=== PATIENT | male | born 1985 | race Caucasian/White ===

== ENCOUNTER 2020-09-13 17:03 | Emergency (ER) | payer OTHER, SELFPAY ==
--- NOTE | ~2020-09-13 | CT_ITS ---
EXAMINATION: CT ABDOMEN AND PELVIS WITHOUT CONTRAST CLINICAL INFORMATION: Flank pain with history of kidney stones COMPARISON: None TECHNIQUE: Multidetector volumetric imaging was performed from the superior aspect of the liver through the pubic symphysis. Sagittal and coronal reformatted images were obtained on the technologist's workstation. This CT examination was performed using dose optimization techniques as appropriate, variously including the following: *Automated exposure control *Adjustment of mA and/or kV according to patient size (this includes techniques or standardized protocols for targeted exams where dose is matched to indication/reason for exam; i.e. extremities or head) *Use of iterative reconstruction technique DLP: 371 mGy-cm FINDINGS: LUNG BASES: The visualized lung bases are unremarkable. LIVER, GALLBLADDER, AND BILIARY TREE: The liver is normal in size, shape, and attenuation. No focal hepatic lesion or biliary ductal dilatation is present. The gallbladder is unremarkable with no evidence of radiopaque gallstones, gallbladder wall thickening, or obvious pericholecystic inflammatory changes. PANCREAS: Unremarkable. SPLEEN: Unremarkable. ADRENAL GLANDS: Unremarkable. KIDNEYS AND URETERS: The kidneys are normal in size, shape, and attenuation. No hydronephrosis, hydroureter, or convincing calculi seen. No perinephric stranding. BLADDER: Unremarkable. GASTROINTESTINAL TRACT: The small and large bowel are unremarkable. The appendix is unremarkable aside from containing some high density material which could be appendicoliths. No periappendiceal inflammatory changes seen.. ABDOMINAL WALL: No significant hernia is appreciated. LYMPH NODES: Normal. VASCULAR: Unremarkable. PELVIC VISCERA: Small amount of free fluid is present in the right pelvis. A phlebolith is present in the right pelvis. Seminal vesicles and prostate appear unremarkable. OSSEOUS STRUCTURES: Mild scoliosis convex to right. CT/CT abdomen pelvis wo con IMPRESSION: 1. A cause for the patient's flank pain has not been found. 2. Renal calculi are not present. 3. An appendicolith is present in the appendix.
[2020-09-13 17:46] VITALS: BP 131/80; PULSE 84; RESP 16; TEMP 37.6; O2SAT 94; BMI 23.1
[2020-09-13 18:35] LABS: Glucose Urine UA NEG (NEG); Leukocyte Esterase Urine NEG (NEG); Nitrite Urine NEG (NEG); Specific Gravity - Urine 1.015 (1.005-1.025); Urine Blood TRACE (NEG); Urine Ketones NEG (NEG); Urine Protein NEG (NEG-TRACE)
[2020-09-13 18:43] LABS: Appearance Urine CLEAR; Color Urine YELLOW
[2020-09-13 19:14] LABS: Bacteria Urine TRACE /LPF; Mucus Urine TRACE /LPF; Squamous Epithelial Cell Urine TRACE /LPF; WBC Urine 0 /HPF (0-4)
[2020-09-13 19:54] VITALS: BP 127/85; PULSE 84; RESP 17; TEMP 37.6; O2SAT 100
[2020-09-13] MEDS: 0.9 % Sodium Chloride 1,000 ML 999 ML IVCONT (20:12)
--- NOTE | 2020-09-13 20:12 | ED.ABDPAIN ---
HPI - Abdominal Pain General Chief Complaint: Abdominal Pain Stated Complaint: kidney stones? Time Seen by Provider: 09/13/20 23:08 Source: patient Mode of arrival: ambulatory Limitations: no limitations History of Present Illness HPI narrative: 34-year-old male presents with right flank pain and urinary symptoms. States that he was diagnosed with a kidney stone the beginning of August, feels that he may have passed his kidney stone and reports that he felt a sharp scratching pain inside his urethra and then noted blood in his urine shortly after. He was referred to [facility]rology group, however he did miss his appointment. Does not report any fevers, chills, chest pain or pressure, palpitations, shortness of breath, abdominal distention, nausea, vomiting, diarrhea, constipation, or any other concerning symptoms. MD elicited complaint: abdominal pain and flank pain Pertinent past history: kidney stones Onset (ago): day(s) Pain Consistency: intermittent Location: RLQ and R flank Severity: severe Pain scale (0-10): 10 Quality: aching Radiation: none Migration to: no migration Exacerbating factors: other (Urination) Relieving factors: rest Associated symptoms: dysuria and hematuria Treatments prior to arrival: NSAIDs Related Data Allergies Allergy/AdvReac Type Severity Reaction Status Date / Time No Known Allergies Allergy Verified 09/13/20 17:54 [No Known Allergies*] Review of Systems Review of Systems Constitutional: No Fever, No Chills ENT/Mouth: No sore throat Eyes: No Eye Pain, No Swelling, No Redness Cardiovascular: No Chest Pain, No SOB Respiratory: No Cough, No Sputum, No Wheezing Gastrointestinal: No Nausea, no Vomiting, No Diarrhea, positive abdominal pain Genitourinary: positive Dysuria, no urinary frequency, positive Hematuria, positive Flank Pain, positive hesitancy Musculoskeletal: No joint pain, No Myalgias Skin: No Skin Lesions, No rash Neuro: No Weakness, No Numbness, No Headache Psych: No Anxiety/Panic, No Depression Heme/Lymph: No Bruising, No Lymphadenopathy Endocrine: No Polyuria, No Polydipsia Yes all other systems are reviewed and are negative Physical Exam Vital Signs: Vital Signs: Last Vital Signs Temp 98.8 F 09/13/20 22:18 Pulse 75 09/13/20 22:18 Resp 12 09/13/20 22:18 BP 118/72 09/13/20 22:18 Pulse Ox 97 09/13/20 22:18 Body Mass Index 23.1 Appearance: Alert. Oriented X3. No acute distress. Eyes: Pupils equal, round and reactive to light. ENT: Pharynx normal. Neck: Normal inspection. Neck supple. CVS: Normal heart rate and rhythm. Pulses normal. Respiratory: No respiratory distress. Breath sounds normal. Abdomen: Soft and nontender. Skin: Skin warm and dry. Normal skin color. Normal skin turgor. Extremities: No lower extremity edema. Neuro: No motor deficit. No sensory deficit. Course Course Course Narrative: 34-year-old male presents with symptoms consistent with kidney stone, has been diagnosed with kidney stone. Will treat for pain, give a L of fluid, and CT scan to rule out pyelo, hydro, obstruction, acute abdomen. Patient is stating his dissatisfaction with care regarding long wait time. Emotional support provided. CT scan negative for acute findings requiring emergent intervention. Does show incidental finding of appendicoliths without appendicitis or adjacent visceral stranding. Plan of care is to discharge home. MDM - Abdominal Pain Lab Data Result diagrams: 09/13/20 20:08 09/13/20 20:08 Labs: Lab Results 09/13/20 09/13/20 09/13/20 Range/Units 18:00 20:08 20:08 WBC 4.1 L (4.8-10.8) X10*3/uL RBC 4.22 L (4.60-5.80) X10*6/uL Hgb 12.8 L (14.0-18.0) g/dl Hct 37.3 L (42-52) % MCV 88.4 (80-98) fL MCH 30.3 (27.0-33.0) pg MCHC 34.3 (31.0-36.0) g/dl RDW 12.7 (11.0-16.0) % Plt Count 192 (160-400) X10*3/uL MPV 12.5 H (9.4-12.4) fL Immature Gran % (Auto) 0.2 (0.0-0.4) % Neut % (Auto) 63.8 (45-73) % Lymph % (Auto) 22.0 (20-40) % [place] % (Auto) 13.6 H (2-11) % Eos % (Auto) 0.2 (0-4) % Baso % (Auto) 0.2 (0-2) % Lymph # (Auto) 0.9 L (1.2-4.9) X10*3/uL [place] # (Auto) 0.6 (0.1-1.2) X10*3/uL Eos # (Auto) 0.0 (0.0-0.4) X10*3/uL Baso # (Auto) 0.0 (0.0-0.2) X10*3/uL Abs Immat Gran (auto) 0.01 (0.00-0.03) X10*3/uL Absolute Neuts (auto) 2.6 (2.0-8.3) X10*3/uL Absolute Nucleated RBC 0.000 (0.0-0.012) X10*3/uL Nucleated RBC % (auto) 0.0 (0.0-0.2) /100WBC Sodium 141 (135-145) mmol/L Potassium 3.6 (3.3-5.1) mmol/L Chloride 103 (96-108) mmol/L Carbon Dioxide 28 (22-29) mmol/L Anion Gap 14 (12-20) BUN 10 (9-16) mg/dL Creatinine 1.19 (0.5-1.4) mg/dL Estim Creat Clear Calc 85.4 Estimated GFR > 60 Random Glucose 81 (60-115) mg/dL Calcium 9.2 (8.4-10.2) mg/dL Urine Color YELLOW Urine Appearance CLEAR Urine pH 6.0 (5.0-8.0) Ur Specific [place] 1.015 (1.005-1.025) Urine Protein NEG (NEG-TRACE) MG/DL Urine Glucose (UA) NEG (NEG) MG/DL Urine Ketones NEG (NEG) MG/DL Urine Blood TRACE (NEG) Urine Nitrite NEG (NEG) Ur Leukocyte Esterase NEG (NEG) Urine RBC 5-9 H (0) /HPF Urine WBC 0 (0-4) /HPF Ur Squamous Epith Cells TRACE /LPF Urine Bacteria TRACE /LPF Urine Mucus TRACE /LPF Imaging Data CT scan - abdomen: Attestation: I personally reviewed and interpreted this imaging study as follows: Radiologist's impression: EXAMINATION: CT ABDOMEN AND PELVIS WITHOUT CONTRAST CLINICAL INFORMATION: Flank pain with history of kidney stones COMPARISON: None TECHNIQUE: Multidetector volumetric imaging was performed from the superior aspect of the liver through the pubic symphysis. Sagittal and coronal reformatted images were obtained on the technologist's workstation. This CT examination was performed using dose optimization techniques as appropriate, variously including the following: *Automated exposure control *Adjustment of mA and/or kV according to patient size (this includes techniques or standardized protocols for targeted exams where dose is matched to indication/reason for exam; i.e. extremities or head) *Use of iterative reconstruction technique DLP: 371 mGy-cm FINDINGS: LUNG BASES: The visualized lung bases are unremarkable. LIVER, GALLBLADDER, AND BILIARY TREE: The liver is normal in size, shape, and attenuation. No focal hepatic lesion or biliary ductal dilatation is present. The gallbladder is unremarkable with no evidence of radiopaque gallstones, gallbladder wall thickening, or obvious pericholecystic inflammatory changes. PANCREAS: Unremarkable. SPLEEN: Unremarkable. ADRENAL GLANDS: Unremarkable. KIDNEYS AND URETERS: The kidneys are normal in size, shape, and attenuation. No hydronephrosis, hydroureter, or convincing calculi seen. No perinephric stranding. BLADDER: Unremarkable. GASTROINTESTINAL TRACT: The small and large bowel are unremarkable. The appendix is unremarkable aside from containing some high density material which could be appendicoliths. No periappendiceal inflammatory changes seen.. ABDOMINAL WALL: No significant hernia is appreciated. LYMPH NODES: Normal. VASCULAR: Unremarkable. PELVIC VISCERA: Small amount of free fluid is present in the right pelvis. A phlebolith is present in the right pelvis. Seminal vesicles and prostate appear unremarkable. OSSEOUS STRUCTURES: Mild scoliosis convex to right. CT/CT abdomen pelvis wo con IMPRESSION: 1. A cause for the patient's flank pain has not been found. 2. Renal calculi are not present. 3. An appendicolith is present in the appendix. Discharge Plan Discharge Clinical Impression: Kidney stone, Appendicolith Patient Disposition: Home, Self-Care Instructions: Renal Colic (ED), Abdominal Pain (ED) Additional Instructions: You were evaluated for abdominal pain and hematuria, blood in your urine. You do have known kidney stones, however the CT scan did not show a stone inside the kidney or ureters. It could be possible that you passed a kidney stone prior to arrival. Please follow-up with Urology if hematuria symptoms persist. Incidental finding, you have an appendicoliths, a small stool ball stuck inside the appendix. This is not a surgical emergency at this time, however it gives you a greater risk for appendicitis. Please use caution, if you develop a fever or chills with abdominal pain please return to the emergency department for evaluation. Thank you for choosing this emergency department for evaluation. Please follow-up with primary care physician as needed. Return to the emergency department for any new, concerning, or worsening symptoms. Interventions: ED Discharge Assessment Last Done: 09/13/20 23:26 Discharge Date/Time: 09/13/20 23:27 [facility] Past Medical History Attestation statement: The following information was validated with the patient. Source: old records reviewed Medical History No known health problems Social History Social History Advance Directives: No Advance Directives Information Provided: Yes
[2020-09-13 20:16] LABS: MANUAL DIFF FLAG NO
[2020-09-13 20:21] LABS: Basophils Percent Auto 0.2 % (0-2); Eosinophils Percent Auto 0.2 % (0-4); Hematocrit 37.3 % (42-52); Hemoglobin 12.8 g/dl (14.0-18.0); Imm Gran Abs Auto 0.01 X10*3/uL (0.00-0.03); Imm Gran Pct Auto 0.2 % (0.0-0.4); Lymphocytes Absolute Auto 0.9 X10*3/uL (1.2-4.9); Mean Corpuscular HGB Conc 34.3 g/dl (31.0-36.0); Mean Corpuscular Hemoglobin 30.3 pg (27.0-33.0); Mean Corpuscular Volume 88.4 fL (80-98); Mean Platelet Volume 12.5 fL (9.4-12.4); Monocytes Absolute Auto 0.6 X10*3/uL (0.1-1.2); Monocytes Percent Auto 13.6 % (2-11); Neutrophils Absolute Auto 2.6 X10*3/uL (2.0-8.3); Neutrophils Percent Auto 63.8 % (45-73); Platelet Count 192 X10*3/uL (160-400); Red Blood Count 4.22 X10*6/uL (4.60-5.80); Red Cell Distribution Width 12.7 % (11.0-16.0); White Blood Count 4.1 X10*3/uL (4.8-10.8)
[2020-09-13] MEDS: Ketorolac Tromethamine 30 MG/ML VIAL IVPUSH (20:28)
[2020-09-13] MEDS: predniSONE 20 MG TABLET PO (20:29)
[2020-09-13] MEDS: ondansetron HCL 4 MG/2 ML VIAL IVPUSH (20:29)
[2020-09-13] MEDS: Tamsulosin HCL 0.4 MG CAPSULE PO (20:29)
[2020-09-13] MEDS: Morphine Sulfate 4 MG/ML CARTRIDGE IVPUSH (20:29)
[2020-09-13 20:48] LABS: Anion Gap 14 (12-20); Blood Urea Nitrogen 10 mg/dL (9-16); Calcium 9.2 mg/dL (8.4-10.2); Carbon Dioxide 28 mmol/L (22-29); Chloride 103 mmol/L (96-108); Creatinine Clr Calc Pharmacy 85.4; Estimated Glomerular Filt Rate > 60; Glucose Random 81 mg/dL (60-115); Potassium 3.6 mmol/L (3.3-5.1); Sodium 141 mmol/L (135-145)
--- NOTE | 2020-09-13 21:37 | PC.NURSE ---
PT RESTING IN BED, TALKING ON PHONE IN FULL SENTENCES. NO SOB NOTED.
[2020-09-13 22:18] VITALS: BP 118/72; PULSE 75; RESP 12; TEMP 37.1; O2SAT 97
--- NOTE | 2020-09-13 22:32 | PC.NURSE ---
PT C/O PAIN. MD AWARE. NO NEW ORDERS AT THIS TIME.
== END 2020-09-13 23:27 | disposition home or self-care (01) ==
PROVIDERS: Nurse Practitioner Family; Emergency Provider Emergency Medicine
DX: N23 Unspecified renal colic (principal); R31.9 Hematuria, unspecified; K38.1 Appendicular concretions; Z87.442 Personal history of urinary calculi
CPT/HCPCS: 36415; 74176; 80048; 81001; 85025; 96361; 96374; 96375; 99284; 99285; J1885; J2270; J2405

== ENCOUNTER 2021-02-24 21:38 | Inpatient (IN) | payer OTHER, SELFPAY ==
[2021-02-25 00:07] VITALS: BMI 22.0
[2021-02-25 01:03] VITALS: BP 139/75; PULSE 66; RESP 16; TEMP 36; O2SAT 99
--- NOTE | 2021-02-25 01:32 | PC.ADMIT ---
Pt is a 35 year old male admitted for Anxiety and depression with suicidal ideation. Diagnosis: Anxiety and depression. Tox: Benzo/Buprenophine. Covid: negative. VSS. Pt denies SI/HI. Pt calm and cooperative, speech is regular with normal tone, rhythm and unruly. Denies auditory and visual hallucinations. Pt reports having depression and suicidal thoughts because of him going through separation with his . Pt states he is looking to establish care with psychiatrist and psychotherapist. Pt is hoping to get better and integrate in to the society.
[2021-02-25 06:00] VITALS: BP 114/68; PULSE 61; RESP 16; TEMP 36.4; O2SAT 97
[2021-02-25] MEDS: Buprenorphine/Naloxone 4/1 mg FILM 1 FILM SUBLINGUAL ×2 (11:45→13:09)
[2021-02-25 11:46] VITALS: PULSE 63
[2021-02-25 12:00] VITALS: BP 122/63; PULSE 63
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
[2021-02-25] MEDS: Buprenorphine/Naloxone 8/2 mg FILM 1 FILM SUBLINGUAL (18:14)
[2021-02-25 19:52] VITALS: BP 119/72; PULSE 89; TEMP 37
[2021-02-26] MEDS: Buprenorphine/Naloxone 8/2 mg FILM 1 FILM SUBLINGUAL ×2 (08:14→18:56)
[2021-02-26 08:34] VITALS: BP 109/62; PULSE 63; RESP 18; TEMP 36.2; O2SAT 100
--- NOTE | 2021-02-26 11:46 | HO.PSYCHPN ---
Subjective Subjective Date of Service: 02/26/21 Reason For Visit: Mixed features Subjective Notes: Conditional Voluntary Medical Problems Affecting Mental Status: No Interim History: Pt reports doing ok - didn't sleep well , but didn't want to take trazodone only takes at detox and it makes him groggy in am, reviewed inital eval - which recommended trial of abilify which I will start tonight. for him Medication Compliance: Yes Side effects from medications: No Attending Groups: Intermittent Review of Systems Acute medical concerns: No Review of Systems Review of Systems Yes all other systems are reviewed and are negative Constitutional: Reports no additional constitutional complaints Mental Status Exam Mental Status Exam Narrative: fairly kempt , seems annoyed - Patient Appearance: Appropriate Patient Orientation: Person, Place, Time and Situation Level of Consciousness: Awake and Appropriate Patient Behavior: Appropriate Mood Description: Apathetic and Angry Affect Description: Calm Patient Cognition Impaired: No Ability to Follow Directions: Fair Speech Pattern: Appropriate Memory Description: Intact Hallucinations: None Delusions: Not Present Thought Process: Intact Thought Content: positive for Intact Depressive Symptoms: Difficulty Sleeping Judgement: Fair Judgement and Insight: knows his marriage is at risk and needs to address substance abuse, Diagnostics Vital Signs (24Hr): Vital Signs - 24 hr 02/25/21 12:00 02/25/21 19:52 02/26/21 08:34 Temperature 98.6 F 97.2 F Pulse Rate 63 89 63 Respiratory Rate 18 Blood Pressure 122/63 119/72 109/62 Pulse Oximetry 100 Body Mass Index 22.0 Medications Medications Current Medications Acetaminophen (Acetaminophen 325 Mg Tablet) 650 mg PO Q6H PRN PRN Reason: Headache/Pain Mild Scale (1-3) Al Hydroxide/Mg Hydroxide (Magnesium Hydrox/Alum Hydrox 30 Ml Oral.Susp) 30 ml PO Q6H PRN PRN Reason: Heartburn/Nausea Aripiprazole (Aripiprazole 5 Mg Tablet) 5 mg PO DAILY [facility] Buprenorphine/Naloxone (Buprenorphine/Naloxone 8/2 Mg Film) 1 film SUBLINGUAL BID@0800,1800 [facility] Last Admin: 02/26/21 08:14 Dose: 1 film Documented by: Hydroxyzine HCl (Hydroxyzine Hcl 25 Mg Tablet) 25 mg PO BEDTIME PRN PRN Reason: Anxiety Magnesium Hydroxide (Milk Of Magnesia 30 Ml Oral.Susp) 30 ml PO DAILY PRN PRN Reason: Constipation Nicotine Polacrilex (Nicotine Polacrilex 2 Mg Gum) 4 mg BUCCAL Q2H PRN PRN Reason: Nicotine Cravings Trazodone HCl (Trazodone Hcl 50 Mg Tablet) 50 mg PO BEDTIME PRN PRN Reason: Insomnia Allergies Allergies Allergy/AdvReac Type Severity Reaction Status Date / Time No Known Allergies Allergy Verified 09/13/20 17:54 [No Known Allergies*] Assessment & Plan Assessment & Plan (1) Bipolar II disorder: Status: Acute Code(s): F31.81 - Bipolar II disorder (2) Opioid use disorder, mild, on maintenance therapy: Status: Acute Code(s): F11.10 - Opioid abuse, uncomplicated (3) Alcohol abuse: Status: Acute Code(s): F10.10 - Alcohol abuse, uncomplicated (4) Cocaine use disorder: Status: Acute Code(s): F14.10 - Cocaine abuse, uncomplicated Assessment and Plan: 35 yo with no sys of withdrawl denies cravings, ongoing feeling down/irritable and trouble sleeping Plan: Start abilify 5 mg QAM for sx of depression, impulsivity, mood congruent paranoia, agitation, and to help with mood instability. Continue suboxone at one 8/2 mg film BID (reportedly using 2-3 of these in the community, can obtain level and monitor for withdrawal sx) Monitor response to medications. Monitor for safety in the milieu. Discharge on stabilization. Patient seen. Chart reviewed. Discussed with team. Greater than 50% of the session was spent on counseling and/or coordination of care Patient educated on: substance abuse Guardian/Caregiver educated on: medication risk/benefits Informed Consent: understands Reason for contiued inpatient stay Substantial Risk for: rapid decompensation
[2021-02-26 18:00] VITALS: BP 122/68; PULSE 66; RESP 16; TEMP 36.9; O2SAT 99
[2021-02-26] MEDS: ARIPiprazole 5 MG TABLET PO (20:50)
[2021-02-27] MEDS: Buprenorphine/Naloxone 8/2 mg FILM 1 FILM SUBLINGUAL ×2 (08:30→17:45)
[2021-02-27 08:41] VITALS: BP 113/76; PULSE 70; RESP 18; TEMP 36.6; O2SAT 98
--- NOTE | 2021-02-27 09:59 | P.PNPSI_ITS ---
Subjective Subjective Date of Service: 02/27/21 Reason For Visit: Mixed features Subjective Notes: Conditional Voluntary Medical Problems Affecting Mental Status: No Interim History: Pt initially fell asleep after aripiprazole but then up an hour later and up and odwn all night, did not ask for melatonin and feigned sleep when nurse came on checks.... creeped him out Medication Compliance: Yes Side effects from medications: No Attending Groups: Intermittent Review of Systems Acute medical concerns: No Medical Review of Systems: unchanged Mental Status Exam Mental Status Exam Narrative: fairly kempt , seems annoyed - Patient Appearance: Appropriate Patient Orientation: Person, Place, Time and Situation Level of Consciousness: Awake and Appropriate Patient Behavior: Appropriate Mood Description: Apathetic Affect Description: Calm Patient Cognition Impaired: No Ability to Follow Directions: Fair Speech Pattern: Appropriate Memory Description: Intact Hallucinations: None Delusions: Not Present Thought Process: Intact Thought Content: positive for Intact Depressive Symptoms: Difficulty Sleeping Judgement: Fair Judgement and Insight: knows his marriage is at risk and needs to address substance abuse, Diagnostics Vital Signs (24Hr): Vital Signs - 24 hr 02/26/21 18:00 02/27/21 08:41 Temperature 98.4 F 97.9 F Pulse Rate 66 70 Respiratory Rate 16 18 Blood Pressure 122/68 113/76 Pulse Oximetry 99 98 Body Mass Index 22.0 Medications Medications Current Medications Acetaminophen (Acetaminophen 325 Mg Tablet) 650 mg PO Q6H PRN PRN Reason: Headache/Pain Mild Scale (1-3) Al Hydroxide/Mg Hydroxide (Magnesium Hydrox/Alum Hydrox 30 Ml Oral.Susp) 30 ml PO Q6H PRN PRN Reason: Heartburn/Nausea Aripiprazole (Aripiprazole 5 Mg Tablet) 5 mg PO BEDTIME [facility] Last Admin: 02/26/21 20:50 Dose: 5 mg Documented by: Buprenorphine/Naloxone (Buprenorphine/Naloxone 8/2 Mg Film) 1 film SUBLINGUAL BID@0800,1800 [facility] Last Admin: 02/27/21 08:30 Dose: 1 film Documented by: Hydroxyzine HCl (Hydroxyzine Hcl 25 Mg Tablet) 25 mg PO BEDTIME PRN PRN Reason: Anxiety Magnesium Hydroxide (Milk Of Magnesia 30 Ml Oral.Susp) 30 ml PO DAILY PRN PRN Reason: Constipation Melatonin (Melatonin 3 Mg Tablet) 3 mg PO BEDTIME MRX1 PRN PRN Reason: Insomnia Nicotine Polacrilex (Nicotine Polacrilex 2 Mg Gum) 4 mg BUCCAL Q2H PRN PRN Reason: Nicotine Cravings Allergies Allergies Allergy/AdvReac Type Severity Reaction Status Date / Time No Known Allergies Allergy Verified 09/13/20 17:54 [No Known Allergies*] Assessment & Plan Assessment & Plan (1) Bipolar II disorder: Status: Acute Code(s): F31.81 - Bipolar II disorder (2) Opioid use disorder, mild, on maintenance therapy: Status: Acute Code(s): F11.10 - Opioid abuse, uncomplicated (3) Alcohol abuse: Status: Acute Code(s): F10.10 - Alcohol abuse, uncomplicated (4) Cocaine use disorder: Status: Acute Code(s): F14.10 - Cocaine abuse, uncomplicated Assessment and Plan: 35 yo with no sys of withdrawl denies cravings, ongoing feeling down/irritable and trouble sleeping Plan: continue aripiprazole trial pt will take melatonin with it tonight, otherwise may need change to am for me Monitor response to medications. Monitor for safety in the milieu. Discharge on stabilization. Patient seen. Chart reviewed. Discussed with team. Greater than 50% of the session was spent on counseling and/or coordination of care Patient educated on: medication risk/benefits Reason for contiued inpatient stay Substantial Risk for: rapid decompensation
[2021-02-27 17:49] VITALS: BP 123/60; PULSE 80; TEMP 37
[2021-02-27] MEDS: ARIPiprazole 5 MG TABLET PO (22:00)
[2021-02-27] MEDS: Melatonin 3 MG TABLET PO (22:00)
[2021-02-28] MEDS: Buprenorphine/Naloxone 8/2 mg FILM 1 FILM SUBLINGUAL ×2 (08:10→19:01)
[2021-02-28] MEDS: FLUoxetine HCl 10 MG CAPSULE PO (14:00)
[2021-02-28] MEDS: Buprenorphine/Naloxone 4/1 mg FILM 1 FILM SUBLINGUAL (14:00)
[2021-02-28 18:00] VITALS: RESP 18
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
[2021-03-01 06:00] VITALS: BP 118/67; PULSE 77; RESP 18; TEMP 36.7; O2SAT 95
[2021-03-01 08:08] VITALS: BP 132/78; PULSE 86; RESP 16; TEMP 36.6; O2SAT 100
[2021-03-01] MEDS: FLUoxetine HCl 10 MG CAPSULE PO (08:08)
[2021-03-01] MEDS: Buprenorphine/Naloxone 8/2 mg FILM 1 FILM SUBLINGUAL ×2 (08:08→20:12)
[2021-03-01] MEDS: Buprenorphine/Naloxone 4/1 mg FILM 1 FILM SUBLINGUAL (08:08)
--- NOTE | 2021-03-01 10:20 | HO.PSYCHPN ---
Subjective Subjective Date of Service: 03/01/21 Reason For Visit: Mixed features Interim History: pt reports that he slept better last night with Abilfy removed. He denies any side-effects to Prozac and agrees to titrate to 20mg which will do over next day or so. Pt continues to deny si/hi/avh. He talked about his need to attend aftercare for substance abuse and his hope of getting into a program. He also shared that he'd been sober for 4.5 years and only relapses 3 months ago when he and separted. Pt shared how his hx of trauma as a child makes him vulnerable to numerous triggers, the break up of his nuclear family being one. He said he's never talked about his trauma history and has used drug abuse as a way to cope with thoughts. Pt said at this point, he would like to engage in 1:1 therapy to help process this history and decrease it's influence on his adult life. Review of Systems Review of Systems ?Patient Appearance:?Appropriate Patient Orientation:?Person, Place, Time and Situation Level of Consciousness:?Awake and Appropriate Patient Behavior:?Appropriate, calm, cooperative Mood Description:?depressed but improving Affect Description:?pensive Patient Cognition Impaired:?No Ability to Follow Directions:?Fair Speech Pattern:?Appropriate Memory Description:?Intact Hallucinations:?None Delusions:?Not Present Thought Process:?Intact, linear, goal oriented Thought Content:?no SI/HI; on treatment;?life struggles Judgement and Insight:intact Diagnostics Vital Signs (24Hr): Vital Signs - 24 hr 02/28/21 18:00 03/01/21 06:00 03/01/21 08:08 Temperature 98.1 F 98 F Pulse Rate 77 86 Respiratory Rate 18 18 16 Blood Pressure 118/67 132/78 Pulse Oximetry 95 100 Body Mass Index 22.0 Medications Medications Current Medications Acetaminophen (Acetaminophen 325 Mg Tablet) 650 mg PO Q6H PRN PRN Reason: Headache/Pain Mild Scale (1-3) Al Hydroxide/Mg Hydroxide (Magnesium Hydrox/Alum Hydrox 30 Ml Oral.Susp) 30 ml PO Q6H PRN PRN Reason: Heartburn/Nausea Buprenorphine/Naloxone (Buprenorphine/Naloxone 8/2 Mg Film) 1 film SUBLINGUAL BID [facility] Last Admin: 03/01/21 08:08 Dose: 1 film Documented by: Buprenorphine/Naloxone (Buprenorphine/Naloxone 4/1 Mg Film) 1 film SUBLINGUAL DAILY [facility] Last Admin: 03/01/21 08:08 Dose: 1 film Documented by: Fluoxetine HCl (Fluoxetine Hcl 10 Mg Capsule) 10 mg PO DAILY [facility] Last Admin: 03/01/21 08:08 Dose: 10 mg Documented by: Hydroxyzine HCl (Hydroxyzine Hcl 25 Mg Tablet) 25 mg PO BEDTIME PRN PRN Reason: Anxiety Magnesium Hydroxide (Milk Of Magnesia 30 Ml Oral.Susp) 30 ml PO DAILY PRN PRN Reason: Constipation Melatonin (Melatonin 3 Mg Tablet) 3 mg PO BEDTIME MRX1 PRN PRN Reason: Insomnia Last Admin: 02/27/21 22:00 Dose: 3 mg Documented by: Nicotine Polacrilex (Nicotine Polacrilex 2 Mg Gum) 4 mg BUCCAL Q2H PRN PRN Reason: Nicotine Cravings Allergies Allergies Allergy/AdvReac Type Severity Reaction Status Date / Time No Known Allergies Allergy Verified 09/13/20 17:54 [No Known Allergies*] Assessment & Plan Assessment & Plan (1) MDD (major depressive disorder), recurrent episode, severe: Status: Acute Code(s): F33.2 - Major depressive disorder, recurrent severe without psychotic features (2) PTSD (post-traumatic stress disorder): Status: Chronic Code(s): F43.10 - Post-traumatic stress disorder, unspecified (3) Cocaine use disorder: Status: Chronic Code(s): F14.10 - Cocaine abuse, uncomplicated (4) Opioid use disorder, mild, on maintenance therapy: Status: Chronic Code(s): F11.10 - Opioid abuse, uncomplicated (5) Alcohol abuse: Status: Chronic Code(s): F10.10 - Alcohol abuse, uncomplicated (6) Bipolar II disorder: Status: Ruled-out Code(s): F31.81 - Bipolar II disorder Assessment and Plan: pt denies hx periods of manic symptoms and at this point hx of behaviors can be explained by depression, complex PTSD, and chronic substance abuse. Assessment and Plan: 35 yo with no sys of withdrawl denies cravings, ongoing feeling down/irritable and trouble sleeping while pt was dx with bipolar disorder type II, he denies any hx of manic type episodes or behaviors and at this point hx of behaviors can be explained by depression, complex PTSD, and chronic substance abuse. He explained that one time he got paranoid once since he had a lot of renae in the house and lives an unsafe neighborhood and for 2 days was constantly surveying all passerbys, however, this was limited to this situation and he did not have other manic symptoms. Pt reports depression is main focus. Control Director discussed risks of coming off abilify and starting on Prozac including risk of triggering manic episode, but pt agrees to this risk and wants to make this change. Control Director agrees that given his reported hx, he is at low risk for having bipolar. Plan: DC abilify; does not want it; interfering w/ sleep; hx of symptoms more likely due to MDD, ptsd and substance abuse continue prozac 10mg for depression and PTSD; titrate to 20mg decided against Wellbutrin since pt already has an intensity about him; however this is also an option INCREASED suboxone by 4/1mg in afternoon since pt used to by on 8/2mg TID Monitor response to medications. Monitor for safety in the milieu. Discharge on stabilization. Patient seen. Chart reviewed. Discussed with team. Greater than 50% of the session was spent on counseling and/or coordination of care Reason for contiued inpatient stay Substantial Risk for: med/psych decompensation
[2021-03-01 18:00] VITALS: BP 140/80; PULSE 77; TEMP 36.6
[2021-03-01] MEDS: Melatonin 3 MG TABLET PO (23:37)
[2021-03-02] MEDS: Buprenorphine/Naloxone 8/2 mg FILM 1 FILM SUBLINGUAL ×2 (08:18→20:05)
[2021-03-02] MEDS: Buprenorphine/Naloxone 4/1 mg FILM 1 FILM SUBLINGUAL (08:18)
[2021-03-02] MEDS: FLUoxetine HCl 10 MG CAPSULE PO (08:18)
[2021-03-02 08:27] VITALS: BP 115/70; PULSE 84; RESP 16; TEMP 36.5; O2SAT 100
--- NOTE | 2021-03-02 12:49 | HO.PSYCHPN ---
Subjective Subjective Date of Service: 03/02/21 Reason For Visit: Mixed features Interim History: pt reports still has depression and anxiety but feels he's coping with it better has he's getting hopeful about getting into an after care program. Pt reports increasing nightmares however that are disturbing sleep. Discussed medications and pt does not want to start a new med just yet (for sleep/nightmares) but wants to wait and see if it resolves on its' own. He feels that he's adjusting to Prozac. Discussed titrating prozac to 20mg given his long hx of depression and anxiety and the subsequent fall out; pt agrees to increased dose. There is a low chance that patients nightmares are secondary to starting Prozac as they coincide; will thus allow patients body to further adjust to this medication as he is niave to psychotropics, and titrate in another day or so. Mental Status Exam Mental Status Exam Narrative: Patient Appearance:?Appropriate Patient Orientation:?Person, Place, Time and Situation Level of Consciousness:?Awake and Appropriate Patient Behavior:?Appropriate, calm, cooperative Mood Description:?depressed Affect Description: remains?depressed Patient Cognition Impaired:?No Ability to Follow Directions:?Fair Speech Pattern:?Appropriate Memory Description:?Intact Hallucinations:?None Delusions:?Not Present Thought Process:?Intact, linear, goal oriented Thought Content:?no SI/HI; on treatment;?life's struggles, failing marriage Judgment and Insight:?knows his marriage is at risk and needs to address substance abuse,? Diagnostics Vital Signs (24Hr): Vital Signs - 24 hr 03/01/21 18:00 03/02/21 08:27 Temperature 97.9 F 97.7 F Pulse Rate 77 84 Respiratory Rate 16 Blood Pressure 140/80 H 115/70 Pulse Oximetry 100 Body Mass Index 22.0 Medications Medications Current Medications Acetaminophen (Acetaminophen 325 Mg Tablet) 650 mg PO Q6H PRN PRN Reason: Headache/Pain Mild Scale (1-3) Al Hydroxide/Mg Hydroxide (Magnesium Hydrox/Alum Hydrox 30 Ml Oral.Susp) 30 ml PO Q6H PRN PRN Reason: Heartburn/Nausea Buprenorphine/Naloxone (Buprenorphine/Naloxone 8/2 Mg Film) 1 film SUBLINGUAL BID [facility] Last Admin: 03/02/21 08:18 Dose: 1 film Documented by: Buprenorphine/Naloxone (Buprenorphine/Naloxone 4/1 Mg Film) 1 film SUBLINGUAL DAILY [facility] Last Admin: 03/02/21 08:18 Dose: 1 film Documented by: Fluoxetine HCl (Fluoxetine Hcl 10 Mg Capsule) 10 mg PO DAILY [facility] Last Admin: 03/02/21 08:18 Dose: 10 mg Documented by: Hydroxyzine HCl (Hydroxyzine Hcl 25 Mg Tablet) 25 mg PO BEDTIME PRN PRN Reason: Anxiety Magnesium Hydroxide (Milk Of Magnesia 30 Ml Oral.Susp) 30 ml PO DAILY PRN PRN Reason: Constipation Melatonin (Melatonin 3 Mg Tablet) 3 mg PO BEDTIME MRX1 PRN PRN Reason: Insomnia Last Admin: 03/01/21 23:37 Dose: 3 mg Documented by: Nicotine Polacrilex (Nicotine Polacrilex 2 Mg Gum) 4 mg BUCCAL Q2H PRN PRN Reason: Nicotine Cravings Allergies Allergies Allergy/AdvReac Type Severity Reaction Status Date / Time No Known Allergies Allergy Verified 09/13/20 17:54 [No Known Allergies*] Assessment & Plan Assessment & Plan (1) MDD (major depressive disorder), recurrent episode, severe: Status: Chronic Code(s): F33.2 - Major depressive disorder, recurrent severe without psychotic features (2) PTSD (post-traumatic stress disorder): Status: Chronic Code(s): F43.10 - Post-traumatic stress disorder, unspecified (3) Cocaine use disorder: Status: Chronic Code(s): F14.10 - Cocaine abuse, uncomplicated (4) Opioid use disorder, mild, on maintenance therapy: Status: Chronic Code(s): F11.10 - Opioid abuse, uncomplicated (5) Alcohol abuse: Status: Chronic Code(s): F10.10 - Alcohol abuse, uncomplicated (6) Bipolar II disorder: Status: Ruled-out Code(s): F31.81 - Bipolar II disorder Assessment and Plan: pt denies hx periods of manic symptoms and at this point hx of behaviors can be explained by depression, complex PTSD, and chronic substance abuse. Assessment and Plan: 35 yo with no sys of withdrawl denies cravings, ongoing feeling down/irritable and trouble sleeping while pt was dx with bipolar disorder type II, he denies any hx of manic type episodes or behaviors and at this point hx of behaviors can be explained by depression, complex PTSD, and chronic substance abuse. He explained that one time he got paranoid once since he had a lot of renae in the house and lives an unsafe neighborhood and for 2 days was constantly surveying all passerbys, however, this was limited to this situation and he did not have other manic symptoms. Pt reports depression is main focus. Coper Hand discussed risks of coming off abilify and starting on Prozac including risk of triggering manic episode, but pt agrees to this risk and wants to make this change. Coper Hand agrees that given his reported hx, he is at low risk for having bipolar. seems to be tolerating Prozac however nightmares coincided with starting this med Discussed titrating prozac to 20mg given his long hx of depression and anxiety and the subsequent fall out; pt agrees to increased dose. As there is a low chance that patients nightmares are secondary to starting Prozac will thus allow patients body to further adjust to this medication (as he is naive to psychotropics), and titrate in another day or so. Also pt carries cx of bipolar disorder. While financial writer thinks this is dx is unlikely, he is now off a mood stabilizer and on a SSRI which carries risk of triggering manic episode. Pt to remain on unit for safety during titration. Plan: DC abilify; does not want it; interfering w/ sleep; hx of symptoms more likely due to MDD, ptsd and substance abuse continue prozac 10mg for depression and PTSD; will titrate to 20mg on 03/04 and monitor for side-effects decided against Wellbutrin since pt already has an intensity about him; however this is also an option INCREASED suboxone by 4/1mg in afternoon since pt used to by on 8/2mg TID Monitor response to medications. Monitor for safety in the milieu. Discharge on stabilization. Patient seen. Chart reviewed. Discussed with team. Greater than 50% of the session was spent on counseling and/or coordination of care Reason for contiued inpatient stay Substantial Risk for: med/psych decompensation
[2021-03-02 23:05] VITALS: BP 128/71; PULSE 71; TEMP 36.7
[2021-03-03] MEDS: Melatonin 3 MG TABLET PO (03:12)
[2021-03-03 06:00] VITALS: BP 108/57; PULSE 82; RESP 16; TEMP 37; O2SAT 98
[2021-03-03 07:00] VITALS: BMI 24.0
[2021-03-03] MEDS: Buprenorphine/Naloxone 4/1 mg FILM 1 FILM SUBLINGUAL (08:22)
[2021-03-03] MEDS: FLUoxetine HCl 10 MG CAPSULE PO (08:22)
[2021-03-03] MEDS: Buprenorphine/Naloxone 8/2 mg FILM 1 FILM SUBLINGUAL ×2 (08:22→19:37)
--- NOTE | 2021-03-03 10:11 | P.PNPSI_ITS ---
Subjective Subjective Date of Service: 03/03/21 Reason For Visit: Mixed features Interim History: pt seen on 03/03 pt reports mood is better; he continues to have nightmares. Pt reiterates his need for a program post discharge feeling vulnerable to relapse. Renewable Energy Consultant discussed medication and pt agrees to titrate Prozac to 20mg starting sunday. Mental Status Exam Mental Status Exam Narrative: Patient Appearance:?Appropriate Patient Orientation:?Person, Place, Time and Situation Level of Consciousness:?Awake and Appropriate Patient Behavior:?Appropriate, calm, cooperative Mood Description:?depressed but less so Affect Description: calm Patient Cognition Impaired:?No Ability to Follow Directions:?Fair Speech Pattern:?Appropriate Memory Description:?Intact Hallucinations:?None Delusions:?Not Present Thought Process:?Intact, linear, goal oriented Thought Content:?no SI/HI; on treatment;?life's struggles, failing marriage Judgment and Insight:?knows his marriage is at risk and needs to address substance abuse,? Diagnostics Vital Signs (24Hr): Vital Signs - 24 hr 03/02/21 23:05 03/03/21 06:00 Temperature 98.1 F 98.6 F Pulse Rate 71 82 Respiratory Rate 16 Blood Pressure 128/71 108/57 L Pulse Oximetry 98 Body Mass Index 24.0 Medications Medications Current Medications Acetaminophen (Acetaminophen 325 Mg Tablet) 650 mg PO Q6H PRN PRN Reason: Headache/Pain Mild Scale (1-3) Al Hydroxide/Mg Hydroxide (Magnesium Hydrox/Alum Hydrox 30 Ml Oral.Susp) 30 ml PO Q6H PRN PRN Reason: Heartburn/Nausea Buprenorphine/Naloxone (Buprenorphine/Naloxone 8/2 Mg Film) 1 film SUBLINGUAL BID [facility] Last Admin: 03/03/21 08:22 Dose: 1 film Documented by: Buprenorphine/Naloxone (Buprenorphine/Naloxone 4/1 Mg Film) 1 film SUBLINGUAL DAILY [facility] Last Admin: 03/03/21 08:22 Dose: 1 film Documented by: Fluoxetine HCl (Fluoxetine Hcl 10 Mg Capsule) 10 mg PO DAILY [facility] Last Admin: 03/03/21 08:22 Dose: 10 mg Documented by: Hydroxyzine HCl (Hydroxyzine Hcl 25 Mg Tablet) 25 mg PO BEDTIME PRN PRN Reason: Anxiety Magnesium Hydroxide (Milk Of Magnesia 30 Ml Oral.Susp) 30 ml PO DAILY PRN PRN Reason: Constipation Melatonin (Melatonin 3 Mg Tablet) 3 mg PO BEDTIME MRX1 PRN PRN Reason: Insomnia Last Admin: 03/03/21 03:12 Dose: 3 mg Documented by: Nicotine Polacrilex (Nicotine Polacrilex 2 Mg Gum) 4 mg BUCCAL Q2H PRN PRN Reason: Nicotine Cravings Allergies Allergies Allergy/AdvReac Type Severity Reaction Status Date / Time No Known Allergies Allergy Verified 09/13/20 17:54 [No Known Allergies*] Assessment & Plan Assessment & Plan (1) MDD (major depressive disorder), recurrent episode, severe: Status: Chronic Code(s): F33.2 - Major depressive disorder, recurrent severe without psychotic features (2) PTSD (post-traumatic stress disorder): Status: Chronic Code(s): F43.10 - Post-traumatic stress disorder, unspecified (3) Cocaine use disorder: Status: Chronic Code(s): F14.10 - Cocaine abuse, uncomplicated (4) Opioid use disorder, mild, on maintenance therapy: Status: Chronic Code(s): F11.10 - Opioid abuse, uncomplicated (5) Alcohol abuse: Status: Chronic Code(s): F10.10 - Alcohol abuse, uncomplicated (6) Bipolar II disorder: Status: Ruled-out Code(s): F31.81 - Bipolar II disorder Assessment and Plan: pt denies hx periods of manic symptoms and at this point hx of behaviors can be explained by depression, complex PTSD, and chronic substance abuse. Assessment and Plan: 35 yo with no sys of withdrawl denies cravings, ongoing feeling down/irritable and trouble sleeping while pt was dx with bipolar disorder type II, he denies any hx of manic type episodes or behaviors and at this point hx of behaviors can be explained by depression, complex PTSD, and chronic substance abuse. He explained that one time he got paranoid once since he had a lot of renae in the house and lives an unsafe neighborhood and for 2 days was constantly surveying all passerbys, however, this was limited to this situation and he did not have other manic symptoms. Pt reports depression is main focus. Renewable Energy Consultant discussed risks of coming off abilify and starting on Prozac including risk of triggering manic episode, but pt agrees to this risk and wants to make this change. Renewable Energy Consultant agrees that given his reported hx, he is at low risk for having bipolar. seems to be tolerating Prozac however nightmares coincided with starting this med Discussed titrating prozac to 20mg given his long hx of depression and anxiety and the subsequent fall out; pt agrees to increased dose. As there is a low chance that patients nightmares are secondary to starting Prozac will thus allow patients body to further adjust to this medication (as he is naive to psychotropics), and titrate in another day or so. Also pt carries cx of bipolar disorder. While publications writer thinks this is dx is unlikely, he is now off a mood stabilizer and on a SSRI which carries risk of triggering manic episode. Pt to remain on unit for safety during titration and for few days following. Plan: DC abilify; does not want it; interfering w/ sleep; hx of symptoms more likely due to MDD, ptsd and substance abuse continue prozac 10mg for depression and PTSD; will titrate to 20mg on 03/04 and monitor for side-effects decided against Wellbutrin since pt already has an intensity about him; however this is also an option INCREASED suboxone by 4/1mg in afternoon since pt used to by on 8/2mg TID Monitor response to medications. Monitor for safety in the milieu. Discharge on stabilization. Patient seen. Chart reviewed. Discussed with team. Greater than 50% of the session was spent on counseling and/or coordination of care Reason for contiued inpatient stay Substantial Risk for: med/psych decompensation
[2021-03-03 18:00] VITALS: BP 124/70; PULSE 80; TEMP 36.6
[2021-03-04 06:00] VITALS: BP 122/60; PULSE 64; RESP 18; TEMP 36.7; O2SAT 100
[2021-03-04] MEDS: FLUoxetine HCl 20 MG CAPSULE PO (08:14)
[2021-03-04] MEDS: Buprenorphine/Naloxone 8/2 mg FILM 1 FILM SUBLINGUAL ×2 (08:14→19:14)
[2021-03-04] MEDS: Buprenorphine/Naloxone 4/1 mg FILM 1 FILM SUBLINGUAL (08:14)
[2021-03-04] MEDS: Nicotine Polacrilex 2 MG GUM 4 MG BUCCAL (11:29)
--- NOTE | 2021-03-04 18:07 | HO.PSYCHPN ---
Subjective Subjective Date of Service: 03/04/21 Reason For Visit: Mixed features Interim History: Patient reports again that he had nightmares. However he also says that he feels more calm on the Prozac, just a little more relaxed, more able to interact socially, little more hopeful. He denies any other medication side effects and would like to continue with current regimen. Patient said that he is very hopeful about getting into a program which he feels he dearly needs to stay sober. He continues to go to groups and is appropriate with peers and staff. Mental Status Exam Mental Status Exam Narrative: Patient Appearance:?Appropriate Patient Orientation:?Person, Place, Time and Situation Level of Consciousness:?Awake and Appropriate Patient Behavior:?Appropriate, calm, cooperative Mood Description:?little better Affect Description: calm Patient Cognition Impaired:?No Ability to Follow Directions:?Fair Speech Pattern:?Appropriate Memory Description:?Intact Hallucinations:?None Delusions:?Not Present Thought Process:?Intact, linear, goal oriented Thought Content:?no SI/HI; on treatment;?life's struggles, failing marriage, substance abuse tx Judgment and Insight:appears intact Diagnostics Vital Signs (24Hr): Vital Signs - 24 hr 03/04/21 06:00 Temperature 98.1 F Pulse Rate 64 Respiratory Rate 18 Blood Pressure 122/60 Pulse Oximetry 100 Body Mass Index 24.0 Medications Medications Current Medications Acetaminophen (Acetaminophen 325 Mg Tablet) 650 mg PO Q6H PRN PRN Reason: Headache/Pain Mild Scale (1-3) Al Hydroxide/Mg Hydroxide (Magnesium Hydrox/Alum Hydrox 30 Ml Oral.Susp) 30 ml PO Q6H PRN PRN Reason: Heartburn/Nausea Buprenorphine/Naloxone (Buprenorphine/Naloxone 8/2 Mg Film) 1 film SUBLINGUAL BID [facility] Last Admin: 03/04/21 08:14 Dose: 1 film Documented by: Buprenorphine/Naloxone (Buprenorphine/Naloxone 4/1 Mg Film) 1 film SUBLINGUAL DAILY [facility] Last Admin: 03/04/21 08:14 Dose: 1 film Documented by: Fluoxetine HCl (Fluoxetine Hcl 20 Mg Capsule) 20 mg PO DAILY [facility] Last Admin: 03/04/21 08:14 Dose: 20 mg Documented by: Hydroxyzine HCl (Hydroxyzine Hcl 25 Mg Tablet) 25 mg PO BEDTIME PRN PRN Reason: Anxiety Magnesium Hydroxide (Milk Of Magnesia 30 Ml Oral.Susp) 30 ml PO DAILY PRN PRN Reason: Constipation Melatonin (Melatonin 3 Mg Tablet) 3 mg PO BEDTIME MRX1 PRN PRN Reason: Insomnia Last Admin: 03/03/21 03:12 Dose: 3 mg Documented by: Nicotine Polacrilex (Nicotine Polacrilex 2 Mg Gum) 4 mg BUCCAL Q2H PRN PRN Reason: Nicotine Cravings Last Admin: 03/04/21 11:29 Dose: 2 mg Documented by: Allergies Allergies Allergy/AdvReac Type Severity Reaction Status Date / Time No Known Allergies Allergy Verified 09/13/20 17:54 [No Known Allergies*] Assessment & Plan Assessment & Plan (1) MDD (major depressive disorder), recurrent episode, severe: Status: Chronic Code(s): F33.2 - Major depressive disorder, recurrent severe without psychotic features (2) PTSD (post-traumatic stress disorder): Status: Chronic Code(s): F43.10 - Post-traumatic stress disorder, unspecified (3) Cocaine use disorder: Status: Chronic Code(s): F14.10 - Cocaine abuse, uncomplicated (4) Opioid use disorder, mild, on maintenance therapy: Status: Chronic Code(s): F11.10 - Opioid abuse, uncomplicated (5) Alcohol abuse: Status: Chronic Code(s): F10.10 - Alcohol abuse, uncomplicated (6) Bipolar II disorder: Status: Ruled-out Code(s): F31.81 - Bipolar II disorder Assessment and Plan: pt denies hx periods of manic symptoms and at this point hx of behaviors can be explained by depression, complex PTSD, and chronic substance abuse. Assessment and Plan: 35 yo with no sys of withdrawl denies cravings, ongoing feeling down/irritable and trouble sleeping while pt was dx with bipolar disorder type II, he denies any hx of manic type episodes or behaviors and at this point hx of behaviors can be explained by depression, complex PTSD, and chronic substance abuse. He explained that one time he got paranoid once since he had a lot of renae in the house and lives an unsafe neighborhood and for 2 days was constantly surveying all passerbys, however, this was limited to this situation and he did not have other manic symptoms. Pt reports depression is main focus. Naval Architect discussed risks of coming off abilify and starting on Prozac including risk of triggering manic episode, but pt agrees to this risk and wants to make this change. Naval Architect agrees that given his reported hx, he is at low risk for having bipolar. seems to be tolerating Prozac however nightmares coincided with starting this med Discussed titrating prozac to 20mg given his long hx of depression and anxiety and the subsequent fall out; pt agrees to increased dose. As there is a low chance that patients nightmares are secondary to starting Prozac will thus allow patients body to further adjust to this medication (as he is naive to psychotropics), and titrate in another day or so. Also pt carries cx of bipolar disorder. While signwriter thinks this is dx is unlikely, he is now off a mood stabilizer and on a SSRI which carries risk of triggering manic episode. Pt to remain on unit for safety during titration and for few days following. Patient has remained stable with increased dose of Prozac to 20 mg. Mood is a little better and patient feels calmer, more relaxed and more able to interact socially. Plan: DC abilify; does not want it; interfering w/ sleep; hx of symptoms more likely due to MDD, ptsd and substance abuse continue prozac 20 mg for depression and anxiety decided against Wellbutrin since pt already has an intensity about him; however this is also an option INCREASED suboxone by 4/1mg in afternoon since pt used to by on 8/2mg TID Monitor response to medications. Monitor for safety in the milieu. Discharge on stabilization. Patient seen. Chart reviewed. Discussed with team. Greater than 50% of the session was spent on counseling and/or coordination of care Reason for contiued inpatient stay Substantial Risk for: rapid decompensation
[2021-03-04 21:11] VITALS: BP 126/75; PULSE 80; TEMP 36.6
[2021-03-05 05:54] VITALS: BP 108/57; PULSE 60; RESP 18; TEMP 36.7; O2SAT 98
[2021-03-05] MEDS: FLUoxetine HCl 20 MG CAPSULE PO (08:26)
[2021-03-05] MEDS: Buprenorphine/Naloxone 8/2 mg FILM 1 FILM SUBLINGUAL ×2 (08:26→20:08)
[2021-03-05] MEDS: Buprenorphine/Naloxone 4/1 mg FILM 1 FILM SUBLINGUAL (08:26)
--- NOTE | 2021-03-05 11:48 | HO.PSYCHPN ---
Subjective Subjective Date of Service: 03/05/21 Reason For Visit: Mixed features Interim History: Patient feels like he is doing better. He reports no nightmares last night at all and feels that it was just something he had to work through and not related to medication. He found out that he got into a CSS program which allowed him to have much relief. He feels that this information significantly reduced his anxiety and also probably helped him sleep better last night. He remains feeling good about current medication regimen including Prozac 20 mg which he says he is tolerating well and continues to provide him with improved mood and feeling overall calmer. Mental Status Exam Mental Status Exam Narrative: Patient Appearance:?Appropriate, scuffy ivory but adequate hygiene Patient Orientation:?Person, Place, Time and Situation Level of Consciousness:?Awake and Appropriate Patient Behavior:?Appropriate, calm, cooperative Mood Description:?better Affect Description: calm Patient Cognition Impaired:?No Ability to Follow Directions:?Fair Speech Pattern:?Appropriate Memory Description:?Intact Hallucinations:?None Delusions:?Not Present Thought Process:?Intact, linear, goal oriented Thought Content:?no SI/HI; on treatment;?life's struggles, failing marriage, substance abuse tx Judgment and Insight: intact Diagnostics Vital Signs (24Hr): Vital Signs - 24 hr 03/04/21 21:11 03/05/21 05:54 Temperature 97.8 F 98.0 F Pulse Rate 80 60 Respiratory Rate 18 Blood Pressure 126/75 108/57 L Pulse Oximetry 98 Body Mass Index 24.0 Medications Medications Current Medications Acetaminophen (Acetaminophen 325 Mg Tablet) 650 mg PO Q6H PRN PRN Reason: Headache/Pain Mild Scale (1-3) Al Hydroxide/Mg Hydroxide (Magnesium Hydrox/Alum Hydrox 30 Ml Oral.Susp) 30 ml PO Q6H PRN PRN Reason: Heartburn/Nausea Buprenorphine/Naloxone (Buprenorphine/Naloxone 8/2 Mg Film) 1 film SUBLINGUAL BID [facility] Last Admin: 03/05/21 08:26 Dose: 1 film Documented by: Buprenorphine/Naloxone (Buprenorphine/Naloxone 4/1 Mg Film) 1 film SUBLINGUAL DAILY [facility] Last Admin: 03/05/21 08:26 Dose: 1 film Documented by: Fluoxetine HCl (Fluoxetine Hcl 20 Mg Capsule) 20 mg PO DAILY [facility] Last Admin: 03/05/21 08:26 Dose: 20 mg Documented by: Hydroxyzine HCl (Hydroxyzine Hcl 25 Mg Tablet) 25 mg PO BEDTIME PRN PRN Reason: Anxiety Magnesium Hydroxide (Milk Of Magnesia 30 Ml Oral.Susp) 30 ml PO DAILY PRN PRN Reason: Constipation Melatonin (Melatonin 3 Mg Tablet) 3 mg PO BEDTIME MRX1 PRN PRN Reason: Insomnia Last Admin: 03/03/21 03:12 Dose: 3 mg Documented by: Nicotine Polacrilex (Nicotine Polacrilex 2 Mg Gum) 4 mg BUCCAL Q2H PRN PRN Reason: Nicotine Cravings Last Admin: 03/04/21 11:29 Dose: 2 mg Documented by: Allergies Allergies Allergy/AdvReac Type Severity Reaction Status Date / Time No Known Allergies Allergy Verified 09/13/20 17:54 [No Known Allergies*] Assessment & Plan Assessment & Plan (1) MDD (major depressive disorder), recurrent episode, severe: Status: Chronic Code(s): F33.2 - Major depressive disorder, recurrent severe without psychotic features (2) PTSD (post-traumatic stress disorder): Status: Chronic Code(s): F43.10 - Post-traumatic stress disorder, unspecified (3) Cocaine use disorder: Status: Chronic Code(s): F14.10 - Cocaine abuse, uncomplicated (4) Opioid use disorder, mild, on maintenance therapy: Status: Chronic Code(s): F11.10 - Opioid abuse, uncomplicated (5) Alcohol abuse: Status: Chronic Code(s): F10.10 - Alcohol abuse, uncomplicated (6) Bipolar II disorder: Status: Ruled-out Code(s): F31.81 - Bipolar II disorder Assessment and Plan: pt denies hx periods of manic symptoms and at this point hx of behaviors can be explained by depression, complex PTSD, and chronic substance abuse. Assessment and Plan: 35 yo with no sys of withdrawl denies cravings, ongoing feeling down/irritable and trouble sleeping while pt was dx with bipolar disorder type II, he denies any hx of manic type episodes or behaviors and at this point hx of behaviors can be explained by depression, complex PTSD, and chronic substance abuse. He explained that one time he got paranoid once since he had a lot of renae in the house and lives an unsafe neighborhood and for 2 days was constantly surveying all passerbys, however, this was limited to this situation and he did not have other manic symptoms. Pt reports depression is main focus. [employer] discussed risks of coming off abilify and starting on Prozac including risk of triggering manic episode, but pt agrees to this risk and wants to make this change. [employer] agrees that given his reported hx, he is at low risk for having bipolar. seems to be tolerating Prozac however nightmares coincided with starting this med Discussed titrating prozac to 20mg given his long hx of depression and anxiety and the subsequent fall out; pt agrees to increased dose. As there is a low chance that patients nightmares are secondary to starting Prozac will thus allow patients body to further adjust to this medication (as he is naive to psychotropics), and titrate in another day or so. Also pt carries cx of bipolar disorder. While assembly instructions writer thinks this is dx is unlikely, he is now off a mood stabilizer and on a SSRI which carries risk of triggering manic episode. Pt to remain on unit for safety during titration and for few days following. Patient has remained stable with increased dose of Prozac to 20 mg. Mood is better and patient feels calmer, more relaxed and more able to interact socially. Plan: DC abilify; does not want it; interfering w/ sleep; hx of symptoms more likely due to MDD, ptsd and substance abuse continue prozac 20 mg for depression and anxiety decided against Wellbutrin since pt already has an intensity about him; however this is also an option INCREASED suboxone by 4/1mg in afternoon since pt used to by on 8/2mg TID Monitor response to medications. Monitor for safety in the milieu. Discharge on stabilization. Patient seen. Chart reviewed. Discussed with team. Greater than 50% of the session was spent on counseling and/or coordination of care Reason for contiued inpatient stay Substantial Risk for: rapid decompensation (with substance abuse)
[2021-03-05 18:00] VITALS: BP 147/67; PULSE 92; RESP 16; TEMP 35.9; O2SAT 97
[2021-03-06 06:00] VITALS: BP 124/58; PULSE 70; RESP 18; TEMP 36.6; O2SAT 98
[2021-03-06] MEDS: FLUoxetine HCl 20 MG CAPSULE PO (08:10)
[2021-03-06] MEDS: Buprenorphine/Naloxone 8/2 mg FILM 1 FILM SUBLINGUAL ×2 (08:10→20:00)
[2021-03-06] MEDS: Buprenorphine/Naloxone 4/1 mg FILM 1 FILM SUBLINGUAL (08:11)
--- NOTE | 2021-03-06 10:44 | HO.PSYCHPN ---
Subjective Subjective Date of Service: 03/06/21 Reason For Visit: Mixed features Interim History: no nightmares, good mood, eager to get into program; tolerating meds well talking with and having good conversations; thinking about needing to be a good father pt complains of a female peer following him; pt says he's trying not to get angry, asking her politely to stop Mental Status Exam Mental Status Exam Narrative: Patient Appearance:?Appropriate, scuffy ivory but adequate hygiene Patient Orientation:?Person, Place, Time and Situation Level of Consciousness:?Awake and Appropriate Patient Behavior:?Appropriate, calm, cooperative Mood Description:?good Affect Description: calm Patient Cognition Impaired:?No Ability to Follow Directions:?Fair Speech Pattern:?Appropriate Memory Description:?Intact Hallucinations:?None Delusions:?Not Present Thought Process:?Intact, linear, goal oriented Thought Content:?no SI/HI; on treatment;?life's struggles, failing marriage, substance abuse tx Judgment and Insight: intact Diagnostics Vital Signs (24Hr): Vital Signs - 24 hr 03/05/21 18:00 03/06/21 06:00 Temperature 96.6 F L 97.9 F Pulse Rate 92 70 Respiratory Rate 16 18 Blood Pressure 147/67 H 124/58 L Pulse Oximetry 97 98 Body Mass Index 24.0 Medications Medications Current Medications Acetaminophen (Acetaminophen 325 Mg Tablet) 650 mg PO Q6H PRN PRN Reason: Headache/Pain Mild Scale (1-3) Al Hydroxide/Mg Hydroxide (Magnesium Hydrox/Alum Hydrox 30 Ml Oral.Susp) 30 ml PO Q6H PRN PRN Reason: Heartburn/Nausea Buprenorphine/Naloxone (Buprenorphine/Naloxone 8/2 Mg Film) 1 film SUBLINGUAL BID [facility] Last Admin: 03/06/21 08:10 Dose: 1 film Documented by: Buprenorphine/Naloxone (Buprenorphine/Naloxone 4/1 Mg Film) 1 film SUBLINGUAL DAILY [facility] Last Admin: 03/06/21 08:11 Dose: 1 film Documented by: Fluoxetine HCl (Fluoxetine Hcl 20 Mg Capsule) 20 mg PO DAILY [facility] Last Admin: 03/06/21 08:10 Dose: 20 mg Documented by: Hydroxyzine HCl (Hydroxyzine Hcl 25 Mg Tablet) 25 mg PO BEDTIME PRN PRN Reason: Anxiety Magnesium Hydroxide (Milk Of Magnesia 30 Ml Oral.Susp) 30 ml PO DAILY PRN PRN Reason: Constipation Melatonin (Melatonin 3 Mg Tablet) 3 mg PO BEDTIME MRX1 PRN PRN Reason: Insomnia Last Admin: 03/03/21 03:12 Dose: 3 mg Documented by: Nicotine Polacrilex (Nicotine Polacrilex 2 Mg Gum) 4 mg BUCCAL Q2H PRN PRN Reason: Nicotine Cravings Last Admin: 03/04/21 11:29 Dose: 2 mg Documented by: Allergies Allergies Allergy/AdvReac Type Severity Reaction Status Date / Time No Known Allergies Allergy Verified 09/13/20 17:54 [No Known Allergies*] Assessment & Plan Assessment & Plan (1) MDD (major depressive disorder), recurrent episode, severe: Status: Chronic Code(s): F33.2 - Major depressive disorder, recurrent severe without psychotic features (2) PTSD (post-traumatic stress disorder): Status: Chronic Code(s): F43.10 - Post-traumatic stress disorder, unspecified (3) Cocaine use disorder: Status: Chronic Code(s): F14.10 - Cocaine abuse, uncomplicated (4) Opioid use disorder, mild, on maintenance therapy: Status: Chronic Code(s): F11.10 - Opioid abuse, uncomplicated (5) Alcohol abuse: Status: Chronic Code(s): F10.10 - Alcohol abuse, uncomplicated (6) Bipolar II disorder: Status: Ruled-out Code(s): F31.81 - Bipolar II disorder Assessment and Plan: pt denies hx periods of manic symptoms and at this point hx of behaviors can be explained by depression, complex PTSD, and chronic substance abuse. Assessment and Plan: 35 yo with no sys of withdrawl denies cravings, ongoing feeling down/irritable and trouble sleeping while pt was dx with bipolar disorder type II, he denies any hx of manic type episodes or behaviors and at this point hx of behaviors can be explained by depression, complex PTSD, and chronic substance abuse. He explained that one time he got paranoid once since he had a lot of renae in the house and lives an unsafe neighborhood and for 2 days was constantly surveying all passerbys, however, this was limited to this situation and he did not have other manic symptoms. Pt reports depression is main focus. [employer]uling [employer] Operator discussed risks of coming off abilify and starting on Prozac including risk of triggering manic episode, but pt agrees to this risk and wants to make this change. [employer]uling [employer] Operator agrees that given his reported hx, he is at low risk for having bipolar. seems to be tolerating Prozac however nightmares coincided with starting this med Discussed titrating prozac to 20mg given his long hx of depression and anxiety and the subsequent fall out; pt agrees to increased dose. As there is a low chance that patients nightmares are secondary to starting Prozac will thus allow patients body to further adjust to this medication (as he is naive to psychotropics), and titrate in another day or so. Also pt carries cx of bipolar disorder. While food writer thinks this is dx is unlikely, he is now off a mood stabilizer and on a SSRI which carries risk of triggering manic episode. Pt to remain on unit for safety during titration and for few days following. Patient has remained stable with increased dose of Prozac to 20 mg. Mood is better and patient feels calmer, more relaxed and more able to interact socially. Plan: DC abilify; does not want it; interfering w/ sleep; hx of symptoms more likely due to MDD, ptsd and substance abuse continue prozac 20 mg for depression and anxiety decided against Wellbutrin since pt already has an intensity about him; however this is also an option INCREASED suboxone by 4/1mg in afternoon since pt used to by on 8/2mg TID Monitor response to medications. Monitor for safety in the milieu. Discharge on stabilization. Patient seen. Chart reviewed. Discussed with team. Greater than 50% of the session was spent on counseling and/or coordination of care Reason for contiued inpatient stay Substantial Risk for: other
[2021-03-06] MEDS: Melatonin 3 MG TABLET PO (23:36)
[2021-03-07 06:00] VITALS: BP 120/57; PULSE 76; RESP 20; TEMP 36.3; O2SAT 99
[2021-03-07] MEDS: FLUoxetine HCl 20 MG CAPSULE PO (07:58)
[2021-03-07] MEDS: Buprenorphine/Naloxone 8/2 mg FILM 1 FILM SUBLINGUAL ×2 (07:59→19:41)
[2021-03-07] MEDS: Buprenorphine/Naloxone 4/1 mg FILM 1 FILM SUBLINGUAL (07:59)
[2021-03-07 16:22] VITALS: BP 132/73; PULSE 120; TEMP 36.2
--- NOTE | 2021-03-07 21:18 | HO.PSYCHPN ---
Subjective Subjective Date of Service: 03/07/21 Reason For Visit: Mixed features Interim History: pt reports good mood; depression low; future oriented and eager for CSS; no sI/hi. Tolerating meds well. Pt denies any nightmares and reports sleeping well. Mental Status Exam Mental Status Exam Narrative: Patient Appearance:?Appropriate, scuffy ivory but adequate hygiene Patient Orientation:?Person, Place, Time and Situation Level of Consciousness:?Awake and Appropriate Patient Behavior:?Appropriate, calm, cooperative Mood Description:?good Affect Description: calm Patient Cognition Impaired:?No Ability to Follow Directions:?Fair Speech Pattern:?Appropriate Memory Description:?Intact Hallucinations:?None Delusions:?Not Present Thought Process:?Intact, linear, goal oriented Thought Content:?no SI/HI; on treatment Judgment and Insight: intact Diagnostics Vital Signs (24Hr): Vital Signs - 24 hr 03/07/21 06:00 03/07/21 16:22 Temperature 97.4 F 97.1 F Pulse Rate 76 120 H Respiratory Rate 20 Blood Pressure 120/57 L 132/73 Pulse Oximetry 99 Body Mass Index 24.0 Medications Medications Current Medications Acetaminophen (Acetaminophen 325 Mg Tablet) 650 mg PO Q6H PRN PRN Reason: Headache/Pain Mild Scale (1-3) Al Hydroxide/Mg Hydroxide (Magnesium Hydrox/Alum Hydrox 30 Ml Oral.Susp) 30 ml PO Q6H PRN PRN Reason: Heartburn/Nausea Buprenorphine/Naloxone (Buprenorphine/Naloxone 8/2 Mg Film) 1 film SUBLINGUAL BID [facility] Last Admin: 03/07/21 19:41 Dose: 1 film Documented by: Buprenorphine/Naloxone (Buprenorphine/Naloxone 4/1 Mg Film) 1 film SUBLINGUAL DAILY [facility] Last Admin: 03/07/21 07:59 Dose: 1 film Documented by: Fluoxetine HCl (Fluoxetine Hcl 20 Mg Capsule) 20 mg PO DAILY [facility] Last Admin: 03/07/21 07:58 Dose: 20 mg Documented by: Hydroxyzine HCl (Hydroxyzine Hcl 25 Mg Tablet) 25 mg PO BEDTIME PRN PRN Reason: Anxiety Magnesium Hydroxide (Milk Of Magnesia 30 Ml Oral.Susp) 30 ml PO DAILY PRN PRN Reason: Constipation Melatonin (Melatonin 3 Mg Tablet) 3 mg PO BEDTIME MRX1 PRN PRN Reason: Insomnia Last Admin: 03/06/21 23:36 Dose: 3 mg Documented by: Nicotine Polacrilex (Nicotine Polacrilex 2 Mg Gum) 4 mg BUCCAL Q2H PRN PRN Reason: Nicotine Cravings Last Admin: 03/04/21 11:29 Dose: 2 mg Documented by: Allergies Allergies Allergy/AdvReac Type Severity Reaction Status Date / Time No Known Allergies Allergy Verified 09/13/20 17:54 [No Known Allergies*] Assessment & Plan Assessment & Plan (1) MDD (major depressive disorder), recurrent episode, severe: Status: Chronic Code(s): F33.2 - Major depressive disorder, recurrent severe without psychotic features (2) PTSD (post-traumatic stress disorder): Status: Chronic Code(s): F43.10 - Post-traumatic stress disorder, unspecified (3) Cocaine use disorder: Status: Chronic Code(s): F14.10 - Cocaine abuse, uncomplicated (4) Opioid use disorder, mild, on maintenance therapy: Status: Chronic Code(s): F11.10 - Opioid abuse, uncomplicated (5) Alcohol abuse: Status: Chronic Code(s): F10.10 - Alcohol abuse, uncomplicated (6) Bipolar II disorder: Status: Ruled-out Code(s): F31.81 - Bipolar II disorder Assessment and Plan: pt denies hx periods of manic symptoms and at this point hx of behaviors can be explained by depression, complex PTSD, and chronic substance abuse. Assessment and Plan: 35 yo with no sys of withdrawl denies cravings, ongoing feeling down/irritable and trouble sleeping while pt was dx with bipolar disorder type II, he denies any hx of manic type episodes or behaviors and at this point hx of behaviors can be explained by depression, complex PTSD, and chronic substance abuse. He explained that one time he got paranoid once since he had a lot of renae in the house and lives an unsafe neighborhood and for 2 days was constantly surveying all passerbys, however, this was limited to this situation and he did not have other manic symptoms. Pt reports depression is main focus. [employer] discussed risks of coming off abilify and starting on Prozac including risk of triggering manic episode, but pt agrees to this risk and wants to make this change. [employer] agrees that given his reported hx, he is at low risk for having bipolar. seems to be tolerating Prozac however nightmares coincided with starting this med Discussed titrating prozac to 20mg given his long hx of depression and anxiety and the subsequent fall out; pt agrees to increased dose. As there is a low chance that patients nightmares are secondary to starting Prozac will thus allow patients body to further adjust to this medication (as he is naive to psychotropics), and titrate in another day or so. Also pt carries cx of bipolar disorder. While proposal lead writer thinks this is dx is unlikely, he is now off a mood stabilizer and on a SSRI which carries risk of triggering manic episode. Pt to remain on unit for safety during titration and for few days following. Patient has remained stable with increased dose of Prozac to 20 mg. Mood is better and patient feels calmer, more relaxed and more able to interact socially. good mood; no si; Plan: DC abilify; does not want it; interfering w/ sleep; hx of symptoms more likely due to MDD, ptsd and substance abuse continue prozac 20 mg for depression and anxiety decided against Wellbutrin since pt already has an intensity about him; however this is also an option INCREASED suboxone by 4/1mg in afternoon since pt used to by on 8/2mg TID Monitor response to medications. Monitor for safety in the milieu. Discharge on stabilization. Patient seen. Chart reviewed. Discussed with team. Greater than 50% of the session was spent on counseling and/or coordination of care Reason for contiued inpatient stay Substantial Risk for: stable for discharge
[2021-03-08] MEDS: Buprenorphine/Naloxone 8/2 mg FILM 1 FILM SUBLINGUAL ×2 (07:57→20:00)
[2021-03-08] MEDS: FLUoxetine HCl 20 MG CAPSULE PO (07:57)
[2021-03-08] MEDS: Buprenorphine/Naloxone 4/1 mg FILM 1 FILM SUBLINGUAL (07:57)
[2021-03-08 08:03] VITALS: BP 135/65; PULSE 81; RESP 16; TEMP 36.7; O2SAT 97
--- NOTE | 2021-03-08 12:44 | HO.PSYCHPN ---
Subjective Subjective Date of Service: 03/08/21 Reason For Visit: Mixed features Interim History: Patient reports good mood; no SI and no HI. Patient reports that depression is much better. One way he can tell is that when he is bored during the day he does not want to sleep; instead he says he is filled with a good energy. Patient continues to sleep well and without nightmares. He feels his medications are working well. Patient is excited and relieved to find out that he is getting into a CSS program starting tomorrow. Mental Status Exam Mental Status Exam Narrative: Patient Appearance:?Appropriate, scuffy ivory but adequate hygiene Patient Orientation:?Person, Place, Time and Situation Level of Consciousness:?Awake and Appropriate Patient Behavior:?Appropriate, calm, cooperative Mood Description:?good Affect Description: calm Patient Cognition Impaired:?No Ability to Follow Directions:?Fair Speech Pattern:?Appropriate Memory Description:?Intact Hallucinations:?None Delusions:?Not Present Thought Process:?Intact, linear, goal oriented Thought Content:?no SI/HI; on treatment Judgment and Insight: intact Diagnostics Vital Signs (24Hr): Vital Signs - 24 hr 03/07/21 16:22 03/08/21 08:03 Temperature 97.1 F 98.1 F Pulse Rate 120 H 81 Respiratory Rate 16 Blood Pressure 132/73 135/65 Pulse Oximetry 97 Body Mass Index 24.0 Medications Medications Current Medications Acetaminophen (Acetaminophen 325 Mg Tablet) 650 mg PO Q6H PRN PRN Reason: Headache/Pain Mild Scale (1-3) Al Hydroxide/Mg Hydroxide (Magnesium Hydrox/Alum Hydrox 30 Ml Oral.Susp) 30 ml PO Q6H PRN PRN Reason: Heartburn/Nausea Buprenorphine/Naloxone (Buprenorphine/Naloxone 8/2 Mg Film) 1 film SUBLINGUAL BID [facility] Last Admin: 03/08/21 07:57 Dose: 1 film Documented by: Buprenorphine/Naloxone (Buprenorphine/Naloxone 4/1 Mg Film) 1 film SUBLINGUAL DAILY [facility] Last Admin: 03/08/21 07:57 Dose: 1 film Documented by: Fluoxetine HCl (Fluoxetine Hcl 20 Mg Capsule) 20 mg PO DAILY [facility] Last Admin: 03/08/21 07:57 Dose: 20 mg Documented by: Hydroxyzine HCl (Hydroxyzine Hcl 25 Mg Tablet) 25 mg PO BEDTIME PRN PRN Reason: Anxiety Magnesium Hydroxide (Milk Of Magnesia 30 Ml Oral.Susp) 30 ml PO DAILY PRN PRN Reason: Constipation Melatonin (Melatonin 3 Mg Tablet) 3 mg PO BEDTIME MRX1 PRN PRN Reason: Insomnia Last Admin: 03/06/21 23:36 Dose: 3 mg Documented by: Nicotine Polacrilex (Nicotine Polacrilex 2 Mg Gum) 4 mg BUCCAL Q2H PRN PRN Reason: Nicotine Cravings Last Admin: 03/04/21 11:29 Dose: 2 mg Documented by: Allergies Allergies Allergy/AdvReac Type Severity Reaction Status Date / Time No Known Allergies Allergy Verified 09/13/20 17:54 [No Known Allergies*] Assessment & Plan Assessment & Plan (1) MDD (major depressive disorder), recurrent episode, severe: Status: Chronic Code(s): F33.2 - Major depressive disorder, recurrent severe without psychotic features (2) PTSD (post-traumatic stress disorder): Status: Chronic Code(s): F43.10 - Post-traumatic stress disorder, unspecified (3) Cocaine use disorder: Status: Chronic Code(s): F14.10 - Cocaine abuse, uncomplicated (4) Opioid use disorder, mild, on maintenance therapy: Status: Chronic Code(s): F11.10 - Opioid abuse, uncomplicated (5) Alcohol abuse: Status: Chronic Code(s): F10.10 - Alcohol abuse, uncomplicated (6) Bipolar II disorder: Status: Ruled-out Code(s): F31.81 - Bipolar II disorder Assessment and Plan: pt denies hx periods of manic symptoms and at this point hx of behaviors can be explained by depression, complex PTSD, and chronic substance abuse. Assessment and Plan: 35 yo with no sys of withdrawl denies cravings, ongoing feeling down/irritable and trouble sleeping while pt was dx with bipolar disorder type II, he denies any hx of manic type episodes or behaviors and at this point hx of behaviors can be explained by depression, complex PTSD, and chronic substance abuse. He explained that one time he got paranoid once since he had a lot of renae in the house and lives an unsafe neighborhood and for 2 days was constantly surveying all passerbys, however, this was limited to this situation and he did not have other manic symptoms. Pt reports depression is main focus. 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 Land Leases And Rentals Manager agrees that given his reported hx, he is at low risk for having bipolar. seems to be tolerating Prozac however nightmares coincided with starting this med Discussed titrating prozac to 20mg given his long hx of depression and anxiety and the subsequent fall out; pt agrees to increased dose. As there is a low chance that patients nightmares are secondary to starting Prozac will thus allow patients body to further adjust to this medication (as he is naive to psychotropics), and titrate in another day or so. Also pt carries cx of bipolar disorder. While typewriter assembler thinks this is dx is unlikely, he is now off a mood stabilizer and on a SSRI which carries risk of triggering manic episode. Pt to remain on unit for safety during titration and for few days following. Patient has remained stable with increased dose of Prozac to 20 mg. Mood is better and patient feels calmer, more relaxed and more able to interact socially. good mood; no si; Patient has remained in a good mood, depression resolved, no SI and no HI, eating and sleeping well and future oriented, looking forward to continuing treatment and then getting back to his job and working on his marriage. Patient is eager for discharge to a CSS program where he will continue with treatment. Patient is not in imminent risk of harm to self or others and his request for discharge honored. Plan: DC abilify; does not want it; interfering w/ sleep; hx of symptoms more likely due to MDD, ptsd and substance abuse continue prozac 20 mg for depression and anxiety decided against Wellbutrin since pt already has an intensity about him; however this is also an option INCREASED suboxone by 4/1mg in afternoon since pt used to by on 8/2mg TID Monitor response to medications. Monitor for safety in the milieu. Discharge on stabilization. Patient seen. Chart reviewed. Discussed with team. Greater than 50% of the session was spent on counseling and/or coordination of care Reason for contiued inpatient stay Substantial Risk for: stable for discharge
--- NOTE | 2021-03-08 13:00 | P.DS_ITS ---
DS: Providers Provider Date of Service: 03/09/21 Date of admission: 02/24/21 21:38 Date of discharge: 03/09/21 Primary care physician: Unknown Physician Attending physician on admission: Izabela Bruce Consults: 02/24/21 22:07 Consult to Hospitalist Routine Consulting Provider: Hospitalist Reason For Exam: psychiatric admit from another hospital Attending physician on discharge: Sea Roberts DS: Diagnosis Discharge Diagnosis (1) MDD (major depressive disorder), recurrent episode, severe: Status: Chronic (2) PTSD (post-traumatic stress disorder): Status: Chronic (3) Cocaine use disorder: Status: Chronic (4) Opioid use disorder, mild, on maintenance therapy: Status: Chronic (5) Alcohol abuse: Status: Chronic DS: Medications Discharge Medications Home Medications: Previous Rx's Medication Instructions Recorded buprenorphine 4 mg-naloxone 1 mg 1 film SUBLINGUAL DAILY #0 ea 03/08/21 sublingual film (Suboxone) buprenorphine 8 mg-naloxone 2 mg 1 film SUBLINGUAL BID #0 ea 03/08/21 sublingual film (Suboxone) fluoxetine 20 mg capsule 20 mg PO DAILY 30 Days #30 cap 03/08/21 melatonin 3 mg tablet 3 mg PO BEDTIME PRN 30 Days #30 tab 03/08/21 Mental Status Exam Mental Status Exam Narrative: Patient Appearance:?Appropriate, scuffy ivory but adequate hygiene Patient Orientation:?Person, Place, Time and Situation Level of Consciousness:?Awake and Appropriate Patient Behavior:?Appropriate, calm, cooperative Mood Description:?good Affect Description: calm Patient Cognition Impaired:?No Ability to Follow Directions:?Fair Speech Pattern:?Appropriate Memory Description:?Intact Hallucinations:?None Delusions:?Not Present Thought Process:?Intact, linear, goal oriented Thought Content:?no SI/HI; on treatment Judgment and Insight: intact DS: Summary Hospital Course Hospital Course: ?Patient is a 35 y.o. Male who self presented to [facility] ED on 02/23/21 reporting increased anxiety, ?bad thoughts,? ... feeling ?explosive.? Utox was positive for benzodiazepines (says he was given valium while at detox at [facility] but was kicked out after an argument with another patient on 02/21/21 after only three days in treatment), cocaine, and suboxone. Precipitating factors include he has been homeless x 2 mo, asked him to leave their home and they are currently , has financial stress, recent relapse on alcohol and cocaine. He currently denies withdrawal sx.? Pt on CV; irritable and depressed on admission but no SI, no HI, no destructive urges, plans, intentions. Pt was restarted on Suboxone which was titrated to good effecxt. On admission, pt was dx with bipolar disorder type II, and started on Abilify, however, on subsequent discussions, he denied any hx of manic type episodes or behaviors and his hx of behaviors could be adequately explained by depression, complex PTSD, and chronic substance abuse. Pt reports depression is main focus and he agreed to dc Abilify and start on Prozac instead which was well tolerated and effective. Pt continued to deny any SI/HI throughout his admission; he was appropriate with peers and staff, attended groups and was forthcoming in sessions. Pt demonstrated good behavioral and impulse control while on the unit. He had a run of nightmares for about 3-4 days, however this resolved as patient continued to engage in talk therapy. Pt wanted to attend a CSS post discharge which SW was able to help him obtain. Pt reported that his depression resolved and his mood was good. He said he felt calmer, more hopeful and optimistic about reconciling with his and staying sober. Pt remained in good mood with no SI, no HI, eating and sleeping well and future oriented, looking forward to continuing treatment and then getting back to his job and family.? Patient is not in imminent risk of harm to self or others and his request for discharge honored. Status at Discharge Functional status at discharge: independent ambulation Overall status at discharge: patient is back to baseline Time Spent with Patient Time attestation: Total time spent providing and/or coordinating discharge services: Time spent: Greater than 30 minutes Discharge Plan Discharge Patient Disposition: Xfer Other Discharge Diagnosis: mdd, recurrent, severe, without psychotic features, in full remission Referrals: Suboxone: [facility] Outpatient Treatment Program (OTP) [Other] - 03/14/21 1:30 pm (In person) Therapy: Dion Blanc ([facility]) [Other] - 03/16/21 1:45 pm (At the office/in person) Psych Prescriber: Yue Traylor ([facility]) [Other] - 04/06/21 11:00 am (Telehealth-You will be emailed a link to join appointment) Psych Prescriber: Yue Traylor ([facility]) [Other] - 05/05/21 9:00 am (Telehealth-You will be emailed a link to join appointment) Residential Placement: [facility] [Other] - 1 Week Dilma Rondon FNP-C [Nurse Practitioner] - 03/17/21 3:20 pm (telehealth) Discharge Medications: New fluoxetine 20 mg Capsule 20 mg PO DAILY 30 Days Qty: 30 RF: 0 melatonin 3 mg Tablet 3 mg PO BEDTIME PRN (Reason: Insomnia) 30 Days Qty: 30 RF: 0 buprenorphine-naloxone [Suboxone] 8-2 mg film 1 film buccal BID 6 Days Qty: 12 RF: 0 buprenorphine-naloxone [Suboxone] 4-1 mg film 1 film sublingual DAILY 5 Days Qty: 5 RF: 0 Discharge Orders: Discharge Order (Routine); Ordered 03/09/21 Ordered By: Sea Roberts Diet: regular diet Activity on Discharge: As tolerated Stand Alone Forms: Patient Portal Discharge page, Community Support Care Plan Goals: Maintain mood and safe behaviors Take medications as prescribed Continue to pursue sobriety Practice coping skills Continue with outpatient providers and reach out to them as needed Health Concerns: Mood stability and behaviors Sobriety Plan of Treatment: Follow up with your psychiatric provider and other outpatient providers regarding above concerns Take medications as prescribed Assessment: Risk assessment at time of discharge:? Patient was interviewed prior to discharge and found to be fully oriented and without any SI or HI. Patient has insight and demonstrates good judgment in terms of wanting to pursue treatment. Patient is not in imminent risk of harm to self or others and has a safety plan that includes presenting to the closest ER or calling 911 if feeling unsafe.? Patient has been observed closely by nursing and unit staff throughout admission; patient has not engaged in any behaviors that suggest dangerousness to self or others and has demonstrated appropriate behaviors and impulse contro l. Discharge Date/Time: 03/09/21 10:25
[2021-03-08 18:00] VITALS: BP 121/69; PULSE 85; TEMP 36.6; O2SAT 96
[2021-03-09 06:00] VITALS: BP 114/51; PULSE 77; RESP 16; TEMP 35.8; O2SAT 98
[2021-03-09] MEDS: Buprenorphine/Naloxone 4/1 mg FILM 1 FILM SUBLINGUAL (08:13)
[2021-03-09] MEDS: FLUoxetine HCl 20 MG CAPSULE PO (08:13)
[2021-03-09] MEDS: Buprenorphine/Naloxone 8/2 mg FILM 1 FILM SUBLINGUAL (08:13)
[2021-03-09] MEDS: Naloxone HCl Nasal TAKE HOME 4 MG SPRAY NOSTRILALT (08:35)
== END 2021-03-09 10:25 | disposition other institution (70) | DRG 751 ==
PROVIDERS: Admitting Provider Psychiatry & Neurology Psychiatry; Visit Provider Psychiatry & Neurology Psychiatry
DX: F33.2 Major depressive disorder, recurrent severe without psychotic features (principal); F11.20 Opioid dependence, uncomplicated; F17.210 Nicotine dependence, cigarettes, uncomplicated; Z71.6 Tobacco abuse counseling; F43.10 Post-traumatic stress disorder, unspecified; F31.81 Bipolar II disorder; F10.10 Alcohol abuse, uncomplicated; F14.10 Cocaine abuse, uncomplicated; Z91.51 Personal history of suicidal behavior; Z59.01 Sheltered homelessness; Z79.899 Other long term (current) drug therapy

== ENCOUNTER 2022-07-18 18:22 | Emergency (ER) | payer OTHER, SELFPAY ==
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
[2022-07-18 18:42] VITALS: BP 129/79; PULSE 110; RESP 18; TEMP 36.7; O2SAT 99; BMI 25.0
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
[2022-07-18] MEDS: Ibuprofen 600 MG TABLET PO (21:45)
== END 2022-07-18 22:56 | disposition home or self-care (01) ==
PROVIDERS: Emergency Provider Emergency Medicine
DX: S09.90XA Unspecified injury of head, initial encounter (principal); S13.9XXA Sprain of joints and ligaments of unspecified parts of neck, initial encounter; V43.62XA Car passenger injured in collision with other type car in traffic accident, initial encounter; Y93.89 Activity, other specified; Y92.414 Local residential or business street as the place of occurrence of the external cause; Y99.9 Unspecified external cause status
CPT/HCPCS: 70450; 72125; 99283; 99284

== ENCOUNTER 2022-08-23 05:23 | Emergency (ER) | payer OTHER, SELFPAY ==
[2022-08-23 05:27] VITALS: BP 138/76; PULSE 54; O2SAT 96
[2022-08-23 05:33] VITALS: BP 123/91; PULSE 57; RESP 16; TEMP 36.6; O2SAT 97; BMI 23.6
--- NOTE | 2022-08-23 07:04 | ED.GENADULT ---
HPI - General Adult General Chief complaint: General Medical Stated complaint: ams Time Seen by Provider: 08/23/22 07:03 Source: patient and EMS Mode of arrival: EMS Limitations: altered mental status History of Present Illness HPI narrative: Found [place] [facility] sleeping in his car appearing intoxicated brought in by the police Onset (ago): hour(s) Severity: mild Related Data Previous Rx's Medication Instructions Recorded buprenorphine 4 mg-naloxone 1 mg 1 film sublingual DAILY 5 days #5 03/08/21 sublingual film (Suboxone) ea buprenorphine 8 mg-naloxone 2 mg 1 film buccal BID 6 days #12 ea 03/08/21 sublingual film (Suboxone) fluoxetine 20 mg capsule 20 mg PO DAILY 30 days #30 caps 03/08/21 melatonin 3 mg tablet 3 mg PO BEDTIME PRN Insomnia 30 03/08/21 days #30 tabs Allergies Allergy/AdvReac Type Severity Reaction Status Date / Time No Known Allergies Allergy Verified 09/13/20 17:54 [No Known Allergies*] Review of Systems Review of Systems: Yes Unobtainable due to mental status PMFSH Past Medical History Medical History MDD (major depressive disorder), recurrent episode, severe No known health problems PTSD (post-traumatic stress disorder) Social History Social History Household Members: Friend(s) Housing: Apartment Do you presently have visiting nurse or other home services: No Patient Tobacco Use Status: Current everyday Tobacco user Tobacco use type: Cigarette Cigarette Packs Per Day: 1 Cigarettes Per Day: 15 Years Smoked: 16 e-Cigarette/Vaping Use: Currently Using Second Hand Smoke Exposure: No Substance Use Type: Crack/Cocaine Advance Directives: No Advance Directives Information Provided: No service: No Sexual orientation: Straight/Heterosexual Physical Exam ED Vital Signs: Vital Signs - 24 hr 08/23/22 05:33 08/23/22 07:14 Temperature 97.9 F Pulse Rate 57 58 Respiratory Rate 16 12 Blood Pressure 123/91 H 114/69 Pulse Oximetry 97 100 Oxygen Delivery Method Room Air Room Air BMI result Body Mass Index 23.6 Const Other: intoxicated General: healthy appearing Nutritional Appearance: average body habitus Limitations: altered mental status HENMT Head: Yes normal to inspection Ears: external ears normal General nose exam: Normal external nose present Mouth: Normal oral and palatal mucosa present and oropharynx normal Throat: Yes posterior oropharynx normal Eyes General: appearance normal, both eyes and all related structures Neck Neck: Yes normal visual inspection Chest Chest palpation & inspection: normal inspection of the chest Resp Auscultation: clear to auscultation bilaterally Cardio Jugular venous distension: no JVD Rate: regular rate Rhythm: regular rhythm Heart sounds: S1 normal heart sound present and S2 normal heart sound present GI Inspection: Yes normal to inspection Palpation (GI): Soft to palpation, nontender and No hepatosplenomegaly present Auscultation: normal bowel sounds General: Yes no CVA tenderness Back/Spine/Pelvis Back: no CVA tenderness Skin General skin exam: no rashes or lesions noted Neuro Cranial nerves: Yes CN's II-XII intact bilaterally Motor exam (neuro): 5/5 motor strength present throughout Extrem General: Yes normal to inspection Psych Other: intoxicated, lethargic Course Reevaluation(s) Reevaluation #1: physician obs: patient placed in physician observation to allow him to sober up Time: 10:25 Reevaluation #2: end of physician observation patient awake and alert Time: 12:22 Medical Decision Making Differential Diagnosis Differential Diagnoses: The differential diagnosis associated with the presentation includes (alcohol intoxication, heroine use, polysubstance abuse) Tests considered The following testing was considered but not selected: I considered getting labs including alcohol and UTox but patient was easily arousable Social Determinants Patient?s care significantly limited by Social Determinants of Health including: Alcoholism and drug addiction in family Discharge Plan Discharge Clinical Impression: Intoxication by drug, Alcohol intoxication Patient Disposition: Home, Self-Care Instructions: Alcohol Intoxication (ED), Polysubstance Abuse (ED) Prescriptions: No Action fluoxetine 20 mg Capsule 20 mg PO DAILY 30 Days Qty: 30 0RF melatonin 3 mg Tablet 3 mg PO BEDTIME PRN (Reason: Insomnia) 30 Days Qty: 30 0RF buprenorphine-naloxone [Suboxone] 8-2 mg film 1 film buccal BID 6 Days Qty: 12 0RF buprenorphine-naloxone [Suboxone] 4-1 mg film 1 film sublingual DAILY 5 Days Qty: 5 0RF Referrals: Physician,Unknown J [Primary Care Provider] - 5 days
[2022-08-23 07:14] VITALS: BP 114/69; PULSE 58; RESP 12; O2SAT 100
--- NOTE | 2022-08-23 07:30 | PC.NURSE ---
Pt appears to be sleeping, vss stable. Respirations even and unlabored. Call [facility] within reach.
--- NOTE | 2022-08-23 10:38 | PC.NURSE ---
Pt continues to sleep, respirations even and unlabored. Call [facility] within reach.
--- NOTE | 2022-08-23 12:11 | PC.NURSE ---
Pt awake, ambulating to bathroom with steady gait.
== END 2022-08-23 12:46 | disposition home or self-care (01) ==
PROVIDERS: Emergency Provider Emergency Medicine
DX: F10.129 Alcohol abuse with intoxication, unspecified (principal); Y90.9 Presence of alcohol in blood, level not specified; F14.129 Cocaine abuse with intoxication, unspecified; Z79.899 Other long term (current) drug therapy
CPT/HCPCS: 99284

== ENCOUNTER 2022-10-02 17:40 | Emergency (ER) | payer MEDICAID, SELFPAY | END 2022-10-02 18:59 | disposition left against medical advice (07) | PROVIDERS: Emergency Provider Emergency Medicine | DX: M79.603 Pain in arm, unspecified (principal) ==

== ENCOUNTER 2023-06-04 22:46 | Emergency (ER) | payer MEDICAID, SELFPAY ==
[2023-06-04 22:52] VITALS: BP 128/59; PULSE 82; RESP 18; TEMP 36.8; O2SAT 99; BMI 26.4
--- NOTE | 2023-06-05 01:50 | PC.NURSE ---
No call in @ 0149.
== END 2023-06-05 01:50 | disposition left against medical advice (07) ==
PROVIDERS: Emergency Provider Emergency Medicine
DX: M79.672 Pain in left foot (principal)
CPT/HCPCS: 99281